=== PATIENT | female | born 1960 | race African-American/Black ===

== ENCOUNTER 2018-03-19 13:56 | Observation (INO) | payer OTHER ==
[2018-03-19] MEDS ORDERED: NITROGLYCERIN OINT 1 INCH/GM PACKET TOPICAL STA (14:30)
[2018-03-19] MEDS ORDERED: ASPIRIN 81 MG PO STA (14:30)
--- NOTE | 2018-03-19 14:33 | ED ---
General Adult HPI - General Chief complaint: Chest Pain Stated complaint: Chest Pain Time Seen by Provider: 03/19/18 14:00 Source: patient, RN notes reviewed Mode of arrival: EMS Limitations: no limitations - History of Present Illness Initial comments: This is a 58-year-old female who presents emergency Department with a past medical history significant for long-term methadone use and recent use of heroin and crack cocaine. Patient is currently in rehab and that is where she came from. Patient comes in complaining of chest pain difficulty breathing and shortness of breath. Patient states it started this morning after she was given her morning meds. Patient denies any diaphoretic episodes. Patient denies any recent fever chills. Patient does states she's had a cough but no sputum production. Patient denies abdominal pain patient denies nausea vomiting diarrhea. Patient denies any lightheadedness dizziness or near syncopal episode. Patient denies any headache patient denies numbness weakness - Related Data Home Medications Medication Instructions Recorded Confirmed Acetaminophen [Tylenol] 650 mg PO Q4H PRN 03/19/18 03/19/18 Buprenorphine HCl [Subutex] 2 mg SL ONCE 03/19/18 03/19/18 Buprenorphine HCl [Subutex] See Taper SL DIRECTED 03/19/18 03/19/18 Calc/Mag 1000/500mg 1 tab PO TID PRN 03/19/18 03/19/18 Chlorpheniramine Maleate 4 mg PO Q4H PRN 03/19/18 03/19/18 [Chlor-Trimeton] Docusate [Colace] 100 mg PO BID 03/19/18 03/19/18 Ibuprofen [Motrin] 600 mg PO Q6HR PRN 03/19/18 03/19/18 Multivitamins, Thera [Multivitamin 1 tab PO DAILY 03/19/18 03/19/18 (formulary)] Ondansetron Odt [Zofran Odt] 8 mg PO Q6H PRN 03/19/18 03/19/18 Ondansetron [Zofran] 4 mg IM Q6H PRN 03/19/18 03/19/18 Thiamine [Vitamin B-1] 100 mg PO DAILY 03/19/18 03/19/18 amLODIPine [Norvasc] 10 mg PO DAILY 03/19/18 03/19/18 busPIRone HCl [Buspar] 10 mg PO TID PRN MDD SEE COMMENTS 03/19/18 03/19/18 cloNIDine HCL [Catapres] 0.1 mg PO Q4H PRN 03/19/18 03/19/18 traZODone HCL 50 - 150 mg PO HS 03/19/18 03/19/18 Allergies Allergy/AdvReac Type Severity Reaction Status Date / Time cyclobenzaprine Allergy Unknown Verified 03/19/18 14:05 [From Flexeril] Sulfa (Sulfonamide Allergy Unknown Verified 03/19/18 14:05 Antibiotics) tetracycline Allergy Unknown Verified 03/19/18 14:05 Review of Systems ROS Statement: Those systems with pertinent positive or pertinent negative responses have been documented in the HPI. ROS Other: All systems not noted in ROS Statement are negative. Past Medical History Past Medical History: Hypertension, Osteoarthritis (OA) Additional Past Medical History / Comment(s): brain aneurism History of Any Multi-Drug Resistant Organisms: None Reported Past Surgical History: Cholecystectomy Additional Past Surgical History / Comment(s): brain coils Past Psychological History: No Psychological Hx Reported Smoking Status: Current every day smoker Past Drug Use History: Cocaine, Heroin, Methamphetamine General Exam - General Exam Comments Initial Comments: GENERAL: Patient is well-developed and well-nourished. Patient is nontoxic and well- hydrated and is in mild distress. ENT: Neck is soft and supple. No significant lymphadenopathy is noted. Oropharynx is clear. Moist mucous membranes. Neck has full range of motion without eliciting any pain. EYES: The sclera were anicteric and conjunctiva were pink and moist. Extraocular movements were intact and pupils were equal round and reactive to light. Eyelids were unremarkable. PULMONARY: Unlabored respirations. Good breath sounds bilaterally. No audible rales rhonchi or wheezing was noted. CARDIOVASCULAR: There is a regular rate and rhythm without any murmurs gallops or rubs. ABDOMEN: Soft and nontender with normal bowel sounds. No palpable organomegaly was noted. There is no palpable pulsatile mass. SKIN: Skin is clear with no lesions or rashes and otherwise unremarkable. NEUROLOGIC: Patient is alert and oriented x3. Cranial nerves II through XII are grossly intact. Motor and sensory are also intact. Normal speech, volume and content. Symmetrical smile. MUSCULOSKELETAL: Normal extremities with adequate strength and full range of motion. LYMPHATICS: No significant lymphadenopathy is noted PSYCHIATRIC: Normal psychiatric evaluation. Normal interpersonal interactions appears functionally intact in deals appropriately with others. No signs of depression. No signs of anxiety. Limitations: no limitations Course Vital Signs 03/19/18 03/19/18 14:12 16:24 Temperature 98.6 F Pulse Rate 57 L 52 L Respiratory 18 18 Rate Blood Pressure 152/76 141/63 O2 Sat by Pulse 93 L 98 Oximetry Medical Decision Making - Medical Decision Making EKG shows sinus bradycardia 50 bpm MI interval is 142 QRS is 88 QT interval is 436 QTC is [address] segment elevation there is no ST segment depression. Chest x-ray shows no acute abnormality. I spoke with the [facility] hospitalist and admitted the patient. - Lab Data Result diagrams: 03/19/18 16:09 03/19/18 16:10 Lab Results 03/19/18 03/19/18 03/19/18 Range/Units 16:09 16:10 16:10 WBC 7.8 (3.8-10.6) k/uL RBC 4.55 (3.80-5.40) m/uL Hgb 14.0 (11.4-16.0) gm/dL Hct 42.9 (34.0-46.0) % MCV 94.1 (80.0-100.0) fL MCH 30.8 (25.0-35.0) pg MCHC 32.7 (31.0-37.0) g/dL RDW 13.3 (11.5-15.5) % Plt Count 176 (150-450) k/uL Neutrophils % 80 % Lymphocytes % 16 % Monocytes % 3 % Eosinophils % 1 % Basophils % 0 % Neutrophils # 6.2 (1.3-7.7) k/uL Lymphocytes # 1.2 (1.0-4.8) k/uL Monocytes # 0.2 (0-1.0) k/uL Eosinophils # 0.0 (0-0.7) k/uL Basophils # 0.0 (0-0.2) k/uL PT 10.2 (9.0-12.0) sec INR 1.0 (<1.2) APTT 26.9 (22.0-30.0) sec Sodium 139 (137-145) mmol/L Potassium 4.2 (3.5-5.1) mmol/L Chloride 108 H (98-107) mmol/L Carbon Dioxide 23 (22-30) mmol/L Anion Gap 8 mmol/L BUN 17 (7-17) mg/dL Creatinine 1.37 H (0.52-1.04) mg/dL Est GFR (CKD-EPI)AfAm 50 (>60 ml/min/1.73 sqM) Est GFR (CKD-EPI)NonAf 43 (>60 ml/min/1.73 sqM) Glucose 113 H (74-99) mg/dL Calcium 9.7 (8.4-10.2) mg/dL Magnesium 1.8 (1.6-2.3) mg/dL Total Bilirubin 0.5 (0.2-1.3) mg/dL AST 36 (14-36) U/L ALT 35 (9-52) U/L Alkaline Phosphatase 86 (38-126) U/L Total Creatine Kinase (30-135) U/L CK-MB (CK-2) (0.0-2.4) ng/mL CK-MB (CK-2) Rel Index Troponin I (0.000-0.034) ng/mL Total Protein 7.5 (6.3-8.2) g/dL Albumin 4.1 (3.5-5.0) g/dL 03/19/18 Range/Units 16:10 WBC (3.8-10.6) k/uL RBC (3.80-5.40) m/uL Hgb (11.4-16.0) gm/dL Hct (34.0-46.0) % MCV (80.0-100.0) fL MCH (25.0-35.0) pg MCHC (31.0-37.0) g/dL RDW (11.5-15.5) % Plt Count (150-450) k/uL Neutrophils % % Lymphocytes % % Monocytes % % Eosinophils % % Basophils % % Neutrophils # (1.3-7.7) k/uL Lymphocytes # (1.0-4.8) k/uL Monocytes # (0-1.0) k/uL Eosinophils # (0-0.7) k/uL Basophils # (0-0.2) k/uL PT (9.0-12.0) sec INR (<1.2) APTT (22.0-30.0) sec Sodium (137-145) mmol/L Potassium (3.5-5.1) mmol/L Chloride (98-107) mmol/L Carbon Dioxide (22-30) mmol/L Anion Gap mmol/L BUN (7-17) mg/dL Creatinine (0.52-1.04) mg/dL Est GFR (CKD-EPI)AfAm (>60 ml/min/1.73 sqM) Est GFR (CKD-EPI)NonAf (>60 ml/min/1.73 sqM) Glucose (74-99) mg/dL Calcium (8.4-10.2) mg/dL Magnesium (1.6-2.3) mg/dL Total Bilirubin (0.2-1.3) mg/dL AST (14-36) U/L ALT (9-52) U/L Alkaline Phosphatase (38-126) U/L Total Creatine Kinase 154 H (30-135) U/L CK-MB (CK-2) 0.6 (0.0-2.4) ng/mL CK-MB (CK-2) Rel Index 0.4 Troponin I <0.012 (0.000-0.034) ng/mL Total Protein (6.3-8.2) g/dL Albumin (3.5-5.0) g/dL Disposition Clinical Impression: Chest pain Disposition: ADMITTED IP TO THIS HOSP Is patient prescribed a controlled substance at d/c from ED?: No Referrals: Nonstaff,Physician [Primary Care Provider] - 1-2 days Time of Disposition: 17:44
--- NOTE | 2018-03-19 15:10 | XR ---
EXAMINATION TYPE: XR chest 2V DATE OF EXAM: 03/19/2018 COMPARISON: NONE HISTORY: History of bradycardia with chest pain and difficulty breathing since this morning. TECHNIQUE: Frontal and lateral views of the chest are obtained. FINDINGS: There is no focal air space opacity, pleural effusion, or pneumothorax seen. The cardiac silhouette size is within normal limits. The osseous structures are intact. IMPRESSION: No acute cardiopulmonary process.
[2018-03-19 16:48] LABS: Basophils % (A) 0 %; Eosinophils % (A) 1 %; HCT 42.9 % (34.0-46.0); Lymphocytes # (A) 1.2 k/uL (1.0-4.8); Lymphocytes % (A) 16 %; MCH 30.8 pg (25.0-35.0); MCHC 32.7 g/dL (31.0-37.0); MCV 94.1 fL (80.0-100.0); Mean Platelet Volume 8.7; Monocytes # (A) 0.2 k/uL (0-1.0); Monocytes % (A) 3 %; Neutrophils # (A) 6.2 k/uL (1.3-7.7); Neutrophils % (A) 80 %; Platelet Count 176 k/uL (150-450); RBC 4.55 m/uL (3.80-5.40); RDW 13.3 % (11.5-15.5); WBC 7.8 k/uL (3.8-10.6)
[2018-03-19 16:58] LABS: Partial Thromboplastin Time 26.9 sec (22.0-30.0); Prothrombin Time 10.2 sec (9.0-12.0)
[2018-03-19 17:17] LABS: Albumin 4.1 g/dL (3.5-5.0); Calcium 9.7 mg/dL (8.4-10.2); Magnesium 1.8 mg/dL (1.6-2.3); Potassium 4.2 mmol/L (3.5-5.1); Total Bilirubin 0.5 mg/dL (0.2-1.3); Total Protein 7.5 g/dL (6.3-8.2)
[2018-03-19 17:18] LABS: Creatine Kinase 154 U/L (30-135)
[2018-03-19 17:31] LABS: Creatine Kinase MB 0.6 ng/mL (0.0-2.4); Troponin I <0.012 ng/mL (0.000-0.034)
[2018-03-19] MEDS ORDERED: NITROGLYCERIN SL TABS 0.4 MG TAB SUBLINGUAL PRN (17:44)
[2018-03-19] MEDS ORDERED: LORazepam 2 MG/ML INJ IV STA (17:59)
[2018-03-19] MEDS: NITROGLYCERIN OINT 1 INCH/GM PACKET TOPICAL SCH (19:02)
[2018-03-19 20:35] VITALS: BMI 41.1
[2018-03-19] MEDS ORDERED: BISACODYL 10 MG SUPP RECTAL PRN (21:57)
[2018-03-19] MEDS ORDERED: cloNIDine HCL 0.1 MG TAB PO PRN (21:59)
[2018-03-19] MEDS ORDERED: ONDANSETRON ODT 8 MG TAB.RAPDIS PO PRN (21:59)
[2018-03-19] MEDS ORDERED: busPIRone HCl 10 MG TAB PO PRN (21:59)
[2018-03-19] MEDS ORDERED: CALC PO PRN (21:59)
[2018-03-19] MEDS ORDERED: MAG PO PRN (21:59)
[2018-03-19] MEDS ORDERED: diphenhydrAMINE 25 MG CAP PO PRN (21:59)
[2018-03-19] MEDS ORDERED: BUPRENORPHINE SL SCH (22:00)
[2018-03-19 22:47] LABS: Creatine Kinase 136 U/L (30-135)
[2018-03-19 22:59] LABS: Creatine Kinase MB 0.7 ng/mL (0.0-2.4); Troponin I <0.012 ng/mL (0.000-0.034)
[2018-03-19] MEDS: SENNOSIDES-DOCUSATE SODIUM 1 EACH TAB PO SCH (23:12)
[2018-03-19] MEDS: amLODIPine 10 MG TAB PO SCH (23:12)
[2018-03-19] MEDS: traZODone HCL 50 MG TAB PO SCH (23:12)
[2018-03-19] MEDS: LORazepam 2 MG/ML INJ IV PRN (23:13)
[2018-03-19] MEDS: PANTOPRAZOLE 40 MG TABLET PO SCH (23:13)
[2018-03-19] MEDS: HEPARIN SODIUM,PORCINE 5,000 UNIT/ML 1 ML VIAL SQ SCH (23:58)
[2018-03-20] MEDS: NITROGLYCERIN OINT 1 INCH/GM PACKET TOPICAL SCH ×2 (00:09→05:23)
[2018-03-20 06:49] LABS: Creatine Kinase MB 0.6 ng/mL (0.0-2.4); Troponin I 0.014 ng/mL (0.000-0.034)
[2018-03-20 07:14] LABS: Cholesterol 167 mg/dL (<200); HDL Cholesterol 30 mg/dL (40-60); LDL Cholesterol,Calculated 100 mg/dL (0-99); Triglycerides 184 mg/dL (<150)
--- NOTE | 2018-03-20 09:56 | CONS ---
CONSULTATION Mrs. Bello is a 58-year-old female with known history of hypertension, chronic tobacco use, who presented to the emergency room from [place] where she was receiving detoxification for heroin, crack and methadone abuse. She felt that the dose of the methadone was weaned down very rapidly and yesterday she felt quite edgy, was nauseated and had achiness all over and she has some chest discomfort. She has no prior documented history of coronary artery disease. She has a history of bradycardia that was asymptomatic. She has mild dyspnea on exertion, but no exertional chest pain. No dizziness. No palpitation. No syncope. No PND, orthopnea, or peripheral edema. Her coronary risk factors are positive for the chronic tobacco use, hypertension. She is nondiabetic. MEDICATION: Include trazodone, buspirone, Norvasc 10 mg daily, thiamin, Zofran, Motrin, and Colace, . REVIEW OF SYSTEMS: RESPIRATORY system: She had history of chronic tobacco use, but no recent wheezing. GI system: No recent GI bleed. No peptic ulcer disease. She had nausea recently. system: No dysuria or hematuria. Nervous system: No stroke or seizure. PHYSICAL EXAMINATION: Physical examination revealed a 58-year-old female, alert, oriented, in no apparent distress. Blood pressure 131/60 with a heart rate in the 60s. HEAD: Normocephalic. Eyes: Sclerae anicteric. Neck is good upstroke. No bruit. No jugular venous distention. Lungs clear to auscultation. HEART: Regular rate and rhythm S1, S2. No S3. No rub. ABDOMEN: Soft, nontender. Positive bowel sounds. No organomegaly. EXTREMITIES: No edema. Intact distal pulses. LAB DATA: Lab data revealed a troponin less than 0.012 for 2 samples. Cholesterol 167, LDL 100, BUN and creatinine 17 and 1.37, potassium 4.0. EKG revealed a sinus bradycardia, rate of 50, no acute changes. Chest x-ray shows no acute infiltrate. IMPRESSION: 1. Chest discomfort atypical for ischemic heart disease. No evidence of acute coronary syndrome. 2. History of multisubstance abuse, undergoing detox. 3. Hypertension. 4. Sinus bradycardia, chronic. 5. Chronic tobacco use. RECOMMENDATION: From the cardiac standpoint, I will obtain echocardiogram with Doppler. If there is no evidence of significant abnormality, I would expect she should be able to be discharged home and followed with her primary physician. Thank you for this consult. CAROLYN / MYRNAN: [id number] /
[2018-03-20] MEDS: HEPARIN SODIUM,PORCINE 5,000 UNIT/ML 1 ML VIAL SQ SCH ×2 (11:09→20:02)
[2018-03-20] MEDS: PANTOPRAZOLE 40 MG TABLET PO SCH (11:09)
[2018-03-20] MEDS: amLODIPine 10 MG TAB PO SCH (11:09)
[2018-03-20] MEDS: ASPIRIN 325 MG TAB PO SCH (11:09)
[2018-03-20] MEDS: THIAMINE 100 MG TAB PO SCH (11:09)
[2018-03-20] MEDS: MULTIVITAMINS, THERA 1 EACH TAB PO SCH (11:09)
[2018-03-20] MEDS: SENNOSIDES-DOCUSATE SODIUM 1 EACH TAB PO SCH ×2 (11:10→19:57)
[2018-03-20] MEDS: ACETAMINOPHEN TAB 325 MG TAB PO PRN (11:13)
[2018-03-20] MEDS ORDERED: SODIUM CHLORIDE 0.9% 500 ML IV ONE ×2 (13:57→17:58)
--- NOTE | 2018-03-20 14:00 | P.HPIM ---
History of Present Illness This is a pleasant 58 years old female with past medical history of hypertension , osteoarthritis, renal disease, brain aneurysm who presents from [facility] for recent use of her weaning and crack cocaine and methadone abuse. Patient presents with chest pain and associated with dyspnea. Patient was admitted for detoxification of her substance abuse. Patient states she was taken methadone 75 mg and to start tapering her down regularly as per patient rapidly with 10 mg each time and each day down to stop and it. As per patient after 2 days she was started feeling abnormals with central chest pain nonradiating, moderate to severe. Associated with shortness of breath and dyspnea. Nonspecific in character. Associated also with pain all over her body and joints. So at [facility] they gave her 2 mg and 4 mg of subutox . However patient started to have pain all over her body and it sounded to send her to emergency room. In the ED her creatinine was high at 1.37, unknown baseline. sugar at 154 and 136. High triglycerides at 184 and LDL 103 LFTs was unremarkable. INR is 1.0. CBC was unremarkable. EKG shows sinus bradycardia at 50 with QTC [address]-T changes. Chest x-ray shows no acute cardiopulmonary process Patient has been evaluated by technical planner and recommended to check echocardiogram and it was concerning the recommendation recommendation discharge patient to follow up as an outpatient from his perspective Review of Systems CONSTITUTIONAL: No fever, no malaise, no fatigue. HEENT: No recent visual problems or hearing problems. Denied any sore throat. CARDIOVASCULAR: No orthopnea, PND, no palpitations, no syncope. PULMONARY: No shortness of breath, no cough, no hemoptysis. GASTROINTESTINAL: No diarrhea, no nausea, no vomiting, no abdominal pain. Normoactive bowel sounds. NEUROLOGICAL: No headaches, no weakness, no numbness. HEMATOLOGICAL: Denies any bleeding or petechiae. GENITOURINARY: Denies any burning micturition, frequency, or urgency. MUSCULOSKELETAL/RHEUMATOLOGICAL: Denies any joint pain, swelling, or any muscle pain. ENDOCRINE: Denies any polyuria or polydipsia. Past Medical History Past Medical History: Hypertension, Osteoarthritis (OA), Renal Disease Additional Past Medical History / Comment(s): brain aneurysm History of Any Multi-Drug Resistant Organisms: None Reported Past Surgical History: Cholecystectomy Additional Past Surgical History / Comment(s): brain coils Past Anesthesia/Blood Transfusion Reactions: No Reported Reaction Past Psychological History: No Psychological Hx Reported Smoking Status: Current every day smoker Past Drug Use History: Cocaine, Heroin, Methamphetamine - Past Family History Father Family Medical History: Cancer, Diabetes Mellitus, Hypertension Mother Additional Family Medical History / Comment(s): AIDS Medications and Allergies Home Medications Medication Instructions Recorded Confirmed Type Acetaminophen [Tylenol] 650 mg PO Q4H PRN 03/19/18 03/19/18 History Buprenorphine HCl [Subutex] 2 mg SL ONCE 03/19/18 03/19/18 History Buprenorphine HCl [Subutex] See Taper SL DIRECTED 03/19/18 03/19/18 History Calc/Mag 1000/500mg 1 tab PO TID PRN 03/19/18 03/19/18 History Chlorpheniramine Maleate 4 mg PO Q4H PRN 03/19/18 03/19/18 History [Chlor-Trimeton] Docusate [Colace] 100 mg PO BID 03/19/18 03/19/18 History Ibuprofen [Motrin] 600 mg PO Q6HR PRN 03/19/18 03/19/18 History Multivitamins, Thera [Multivitamin 1 tab PO DAILY 03/19/18 03/19/18 History (formulary)] Ondansetron Odt [Zofran Odt] 8 mg PO Q6H PRN 03/19/18 03/19/18 History Ondansetron [Zofran] 4 mg IM Q6H PRN 03/19/18 03/19/18 History Thiamine [Vitamin B-1] 100 mg PO DAILY 03/19/18 03/19/18 History amLODIPine [Norvasc] 10 mg PO DAILY 03/19/18 03/19/18 History busPIRone HCl [Buspar] 10 mg PO TID PRN MDD SEE COMMENTS 03/19/18 03/19/18 History cloNIDine HCL [Catapres] 0.1 mg PO Q4H PRN 03/19/18 03/19/18 History traZODone HCL 50 - 150 mg PO HS 03/19/18 03/19/18 History Allergies Allergy/AdvReac Type Severity Reaction Status Date / Time cyclobenzaprine Allergy Unknown Verified 03/19/18 14:05 [From Flexeril] Sulfa (Sulfonamide Allergy Unknown Verified 03/19/18 14:05 Antibiotics) tetracycline Allergy Unknown Verified 03/19/18 14:05 Physical Exam Vitals: Vital Signs Temp Pulse Pulse Pulse Resp BP BP 03/20/18 12:00 98.4 F 56 L 18 03/20/18 08:00 98.6 F 55 L 62 18 03/20/18 05:36 03/20/18 04:00 98.7 F 62 16 03/20/18 00:00 51 L 16 03/19/18 23:13 98.5 F 52 L 16 03/19/18 20:00 51 L 16 03/19/18 19:20 98.1 F 55 L 18 184/97 03/19/18 19:02 98.1 F 98 18 121/86 03/19/18 16:24 52 L 18 141/63 03/19/18 14:12 98.6 F 57 L 18 152/76 BP Pulse Ox 03/20/18 12:00 179/72 94 L 03/20/18 08:00 131/74 95 03/20/18 05:36 131/60 03/20/18 04:00 148/88 97 03/20/18 00:00 03/19/18 23:13 162/77 96 03/19/18 20:00 03/19/18 19:20 190/95 96 03/19/18 19:02 98 03/19/18 16:24 98 03/19/18 14:12 93 L Intake and Output 03/19/18 03/20/18 03/20/18 22:59 06:59 14:59 Other: Voiding Method Toilet Toilet Toilet # Voids 2 Weight 108.862 kg GENERAL: The patient is alert and oriented x3, not in any acute distress. Well developed, well nourished. Obese HEENT: Pupils are round and equally reacting to light. EOMI. No scleral icterus. No conjunctival pallor. Normocephalic, atraumatic. No pharyngeal erythema. No thyromegaly. CARDIOVASCULAR: S1 and S2 present. No murmurs, rubs, or gallops. PULMONARY: Chest is clear to auscultation, no wheezing or crackles. ABDOMEN: Soft, nontender, nondistended, normoactive bowel sounds. No palpable organomegaly. MUSCULOSKELETAL: No joint swelling or deformity. EXTREMITIES: No cyanosis, clubbing, or pedal edema. NEUROLOGICAL: Gross neurological examination did not reveal any focal deficits. SKIN: No rashes. Results CBC & Chem 7: 03/19/18 16:09 03/19/18 16:10 Labs: Abnormal Lab Results - Last 24 Hours (Table) 03/19/18 03/19/18 03/19/18 Range/Units 16:10 16:10 22:15 Chloride 108 H (98-107) mmol/L Creatinine 1.37 H (0.52-1.04) mg/dL Glucose 113 H (74-99) mg/dL Total Creatine Kinase 154 H 136 H (30-135) U/L Triglycerides (<150) mg/dL LDL Cholesterol, Calc (0-99) mg/dL HDL Cholesterol (40-60) mg/dL 03/20/18 Range/Units 05:23 Chloride (98-107) mmol/L Creatinine (0.52-1.04) mg/dL Glucose (74-99) mg/dL Total Creatine Kinase (30-135) U/L Triglycerides 184 H (<150) mg/dL LDL Cholesterol, Calc 100 H (0-99) mg/dL HDL Cholesterol 30 L (40-60) mg/dL Thrombosis Risk Factor Assmnt - Choose All That Apply Each Factor Represents 1 point: Age 41-60 years, Obesity (BMI >25) Thrombosis Risk Factor Assessment Total Risk Factor Score: 2 Thrombosis Risk Factor Assessment Level: Low Risk Assessment and Plan Assessment: Chest pain, with cardiology evaluation History of cocaine, her weaning and methadone abuse. Patient currently at rehab Hyperlipidemia Hypertension high Creatinine at 1.37, with an unknown baseline Asymptomatic bradycardia Dehydration Plan: Continue with the same treatment.Symptomatic treatment. Patient has been evaluated by technical planner recommended echocardiogram with possible discharge if it is negative with recommendation to follow up as an outpatient. We'll give IV fluids for dehydration and recheck labs Continue with GI and DVT prophylaxis. Pain management. Resume her home medication. Her current it to the patient to attend to [facility] upon discharge and she verbalized understanding and acceptance. Further recommendations based on the clinical course.
[2018-03-20 16:06] LABS: Calcium 9.5 mg/dL (8.4-10.2)
[2018-03-20 16:07] LABS: Potassium 5.2 mmol/L (3.5-5.1)
--- NOTE | 2018-03-20 16:22 | ECHOF ---
Referral Reason:chest pain MEASUREMENTS -------- HEIGHT: 162.6 cm WEIGHT: 108.9 kg BP: RVIDd: 3.3 cm (< 3.3) IVSd: 1.3 cm (0.6 - 1.1) LVIDd: 4.3 cm (3.9 - 5.3) LVPWd: 1.2 cm (0.6 - 1.1) IVSs: 1.4 cm LVIDs: 3.2 cm LVPWs: 1.5 cm LA Diam: 1.5 cm (2.7 - 3.8) LAESV Index (A-L): 40.15 ml/m Ao Diam: 3.1 cm (2.0 - 3.7) AV Cusp: 1.7 cm (1.5 - 2.6) LA Diam: 4.2 cm (2.7 - 3.8) MV EXCURSION: 22.907 mm (> 18.000) MV EF SLOPE: 127 mm/s (70 - 150) EPSS: 0.6 cm MV E Delroy: 0.68 m/s MV DecT: 202 ms MV A Delroy: 0.80 m/s MV E/A Ratio: 0.86 RAP: 5.00 mmHg RVSP: 32.22 mmHg FINDINGS -------- Sinus rhythm. This was a technically good study. The left ventricular size is normal. There is mild concentric left ventricular hypertrophy. Overa ll left ventricular systolic function is normal with, an EF between 55 - 60 %. The right ventricle is normal in size. LA is severely dilated >40 ml/m2 The right atrial size is normal. The aortic valve is trileaflet, and appears structurally normal. No aortic stenosis or regurgitation. Mild mitral annular calcification present. Mild mitral regurgitation is present. Mild tricuspid regurgitation present. There is no evidence of pulmonary hypertension. The right v entricular systolic pressure, as measured by Doppler, is 32.22mmHg. There is no pulmonic regurgitation present. The aortic root size is normal. There is no pericardial effusion. CONCLUSIONS -------- 1. Sinus rhythm. 2. The left ventricular size is normal. 3. There is mild concentric left ventricular hypertrophy. 4. Overall left ventricular systolic function is normal with, an EF between 55 - 60 %. 5. LA is severely dilated >40 ml/m2 6. The aortic valve is trileaflet, and appears structurally normal. No aortic stenosis or regurgitati on. 7. Mild mitral annular calcification present. 8. Mild mitral regurgitation is present. 9. Mild tricuspid regurgitation present. 10. There is no evidence of pulmonary hypertension. 11. There is no pulmonic regurgitation present. 12. The aortic root size is normal. 13. There is no pericardial effusion. SEARCH DIRECTOR: Marci Hussein RDCS
[2018-03-20] MEDS: SODIUM CHLORIDE 0.9% 1,000 ML IV SCH (18:21)
[2018-03-20] MEDS: LORazepam 2 MG/ML INJ IV PRN ×2 (18:22→22:15)
[2018-03-20] MEDS: traZODone HCL 50 MG TAB PO SCH (19:57)
[2018-03-20 22:19] LABS: Calcium 9.3 mg/dL (8.4-10.2)
[2018-03-20 22:23] LABS: Potassium 4.9 mmol/L (3.5-5.1)
[2018-03-21] MEDS: ACETAMINOPHEN TAB 325 MG TAB PO PRN (03:03)
[2018-03-21 08:05] LABS: Calcium 9.3 mg/dL (8.4-10.2)
[2018-03-21] MEDS: HEPARIN SODIUM,PORCINE 5,000 UNIT/ML 1 ML VIAL SQ SCH ×2 (08:10→21:09)
[2018-03-21] MEDS: PANTOPRAZOLE 40 MG TABLET PO SCH (08:12)
[2018-03-21] MEDS: MULTIVITAMINS, THERA 1 EACH TAB PO SCH (08:12)
[2018-03-21] MEDS: SENNOSIDES-DOCUSATE SODIUM 1 EACH TAB PO SCH ×2 (08:12→21:09)
[2018-03-21] MEDS: ASPIRIN 325 MG TAB PO SCH (08:12)
[2018-03-21] MEDS: amLODIPine 10 MG TAB PO SCH (08:12)
[2018-03-21] MEDS: THIAMINE 100 MG TAB PO SCH (08:12)
[2018-03-21 08:14] LABS: Potassium 4.5 mmol/L (3.5-5.1)
[2018-03-21] MEDS: hydrALAZINE HCL 25 MG TAB PO SCH ×2 (12:12→21:10)
--- NOTE | 2018-03-21 16:07 | P.PN ---
Subjective This is a pleasant 58 years old female with past medical history of hypertension , osteoarthritis, renal disease, brain aneurysm who presents from [facility] for recent use of her weaning and crack cocaine and methadone abuse. Patient presents with chest pain and associated with dyspnea. Patient was admitted for detoxification of her substance abuse. Patient states she was taken methadone 75 mg and to start tapering her down regularly as per patient rapidly with 10 mg each time and each day down to stop and it. As per patient after 2 days she was started feeling abnormals with central chest pain nonradiating, moderate to severe. Associated with shortness of breath and dyspnea. Nonspecific in character. Associated also with pain all over her body and joints. So at [facility] they gave her 2 mg and 4 mg of subutox . However patient started to have pain all over her body and it sounded to send her to emergency room. In the ED her creatinine was high at 1.37, unknown baseline. sugar at 154 and 136. High triglycerides at 184 and LDL 103 LFTs was unremarkable. INR is 1.0. CBC was unremarkable. EKG shows sinus bradycardia at 50 with QTC [address]-T changes. Chest x-ray shows no acute cardiopulmonary process Patient has been evaluated by pelletizer operator and recommended to check echocardiogram and it was concerning the recommendation recommendation discharge patient to follow up as an outpatient from his perspective -03/21/2018 Patient feels jittery and anxious, her creatinine is still elevated at 1.36. Potassium is within normal limits. Check renal ultrasound and ask for nephrology consult Objective - Vital Signs Vital signs: Vital Signs Temp 98.3 F 03/21/18 08:00 Pulse 59 L 03/21/18 12:00 Resp 18 03/21/18 12:00 BP 154/87 03/21/18 08:00 Pulse Ox 93 L 03/21/18 08:00 Intake & Output 03/20/18 03/21/18 03/21/18 18:59 06:59 18:59 Weight 108.862 kg Other: Voiding Method Toilet Toilet Toilet # Voids 3 3 - Exam GENERAL: The patient is alert and oriented x3, not in any acute distress. Well developed, well nourished. HEENT: Pupils are round and equally reacting to light. EOMI. No scleral icterus. No conjunctival pallor. Normocephalic, atraumatic. No pharyngeal erythema. No thyromegaly. CARDIOVASCULAR: S1 and S2 present. No murmurs, rubs, or gallops. PULMONARY: Chest is clear to auscultation, no wheezing or crackles. ABDOMEN: Soft, nontender, nondistended, normoactive bowel sounds. No palpable organomegaly. MUSCULOSKELETAL: No joint swelling or deformity. EXTREMITIES: No cyanosis, clubbing, or pedal edema. NEUROLOGICAL: Gross neurological examination did not reveal any focal deficits. SKIN: No rashes. - Labs CBC & Chem 7: 03/19/18 16:09 03/21/18 06:35 Labs: Abnormal Lab Results - Last 24 Hours (Table) 03/20/18 03/20/18 03/21/18 Range/Units 15:22 21:41 06:35 Potassium 5.2 H (3.5-5.1) mmol/L Chloride 117 H 117 H 119 H (98-107) mmol/L Carbon Dioxide 18 L 19 L 19 L (22-30) mmol/L BUN 19 H (7-17) mg/dL Creatinine 1.30 H 1.30 H 1.36 H (0.52-1.04) mg/dL Glucose 101 H 105 H (74-99) mg/dL Assessment and Plan Assessment: Chest pain, with cardiology evaluation History of cocaine, her weaning and methadone abuse. Patient currently at rehab Hyperlipidemia Hypertension high Creatinine at 1.37, with an unknown baseline Asymptomatic bradycardia Dehydration Plan: Continue with the same treatment.Symptomatic treatment. Patient has been evaluated by pelletizer operator recommended echocardiogram with possible discharge if it is negative with recommendation to follow up as an outpatient. We'll give IV fluids for dehydration and recheck labs Continue with GI and DVT prophylaxis. Pain management. Resume her home medication. Her current it to the patient to attend to [facility] upon discharge and she verbalized understanding and acceptance. Further recommendations based on the clinical course.
[2018-03-21] MEDS: LORazepam 2 MG/ML INJ IV PRN ×2 (16:10→21:09)
[2018-03-21] MEDS: GABAPENTIN 300 MG CAP PO SCH ×2 (17:06→21:09)
[2018-03-21] MEDS: traZODone HCL 50 MG TAB PO SCH (21:09)
[2018-03-22 04:51] VITALS: RESP 16
[2018-03-22 07:13] LABS: Calcium 9.4 mg/dL (8.4-10.2); Potassium 4.9 mmol/L (3.5-5.1)
--- NOTE | 2018-03-22 09:20 | PN ---
PROGRESS NOTE A 58-year-old lady with history of polysubstance abuse that is admitted to hospital with chest pain, was evaluated by my associate, Dr. Edward who felt that the chest discomfort was atypical and noncardiac in origin. Myocardial infarction is ruled out. She underwent an echocardiogram that showed normal LV function. No evidence of pericardial effusion. This morning, she is feeling better, but her blood pressures have been elevated at 180/78. There is no jugular venous distention. Chest exam reveals diminished air entry at the bases. Heart exam reveals first and second heart sounds. No gallop. Abdomen is soft. Examination of extremities did not reveal any edema. Peripheral pulses are palpable. ASSESSMENT: 1. Atypical chest pain. 2. Uncontrolled hypertension. PLAN: I will increase the dose of hydralazine to 50 mg 3 times a day for more optimal blood pressure control. She will continue rest of her medications. No further cardiac workup at this time. We will follow her on an as-needed basis. MMODL / IJN: [id number] /
[2018-03-22] MEDS: SODIUM CHLORIDE 0.9% 1,000 ML IV SCH ×2 (09:25→09:26)
[2018-03-22] MEDS: hydrALAZINE HCL 50 MG TAB PO SCH ×2 (10:19→16:49)
[2018-03-22] MEDS: SENNOSIDES-DOCUSATE SODIUM 1 EACH TAB PO SCH (10:19)
[2018-03-22] MEDS: GABAPENTIN 300 MG CAP PO SCH ×2 (10:20→16:49)
[2018-03-22] MEDS: THIAMINE 100 MG TAB PO SCH (10:20)
[2018-03-22] MEDS: HEPARIN SODIUM,PORCINE 5,000 UNIT/ML 1 ML VIAL SQ SCH (10:20)
[2018-03-22] MEDS: PANTOPRAZOLE 40 MG TABLET PO SCH (10:20)
[2018-03-22] MEDS: ASPIRIN 325 MG TAB PO SCH (10:20)
[2018-03-22] MEDS: amLODIPine 10 MG TAB PO SCH (10:20)
[2018-03-22] MEDS: ACETAMINOPHEN TAB 325 MG TAB PO PRN (10:34)
--- NOTE | 2018-03-22 11:01 | US ---
EXAMINATION TYPE: US renals and bladder DATE OF EXAM: 03/22/2018 COMPARISON: NONE CLINICAL HISTORY: acute kidney injury . PHAM EXAM MEASUREMENTS: Right Kidney: 10.9 x 5.1 x 4.4 cm Left Kidney: 9.2 x 4.8 x 4.0 cm Technical limitations due to patient's body habitus and large amount of overlying bowel content Right Kidney: prominent collecting system Left Kidney: limited evaluation due to overlying bowel, appears bulky Bladder: appears wnl Bilateral Jets seen: yes IMPRESSION: Limited exam as discussed above demonstrates a slightly prominent right collecting system without saji dence of renal calcification. Assessment for mass is limited given the limitations of the exam. Would recommend a follow-up CT scan as clinically warranted.
[2018-03-22 11:38] LABS: Appearance,Urine Clear (Clear); Bilirubin,Urine Negative (Negative); Blood,Urine Negative (Negative); Color,Urine Light Yellow; Glucose,Urine (UA) Negative (Negative); Ketones,Urine Negative (Negative); Leukocyte Esterase,Urine Negative (Negative); Nitrite,Urine Negative (Negative); Protein,Urine Negative (Negative); Specific Gravity,Urine 1.008 (1.001-1.035); Urobilinogen,Urine <2.0 mg/dL (<2.0)
--- NOTE | 2018-03-22 11:45 | P.NPCON ---
History of Present Illness - Reason for Consult acute renal failure - History of Present Illness Social for consultation: Acute kidney injury History of present illness: Patient is a 58-year-old female seen in renal consultation for acute kidney injury. Patient's creatinine was 1.3 this admission and is 1.47 today. Unclear as to what her baseline renal function is. Patient presented to the hospital with chest pain. This was evaluated by cardiology. Chest pain has resolved. No swelling. Admits to good urine output. No hematuria or dysuria. Patient does admit to using Motrin when needed for pain. She also has history of cocaine and heroine abuse. Patient states she last used these drugs about 2 weeks ago. She denies any family history of renal disease. Her blood pressures have been running high and hydralazine was added this morning. Amlodipine was added yesterday. Renal ultrasound reveals no significant hydronephrosis. Urinalysis is benign. Denies fever or chills. Denies shortness of breath. No abdominal pain. Oral intake is good. Vital signs are stable. General: The patient appeared well nourished and normally developed. HEENT: Head exam is unremarkable. Neck is without jugular venous distension. LUNGS: Lungs are clear to auscultation and percussion. Breath sounds decreased. HEART: Rate and Rhythm are regular. First and second heart sounds normal. No murmurs, rubs or gallops. ABDOMEN: Abdominal exam reveals normal bowel sounds. Non-tender and non- distended. No evidence of peritonitis. EXTREMITITES: No clubbing, cyanosis, or edema. Past Medical History Past Medical History: Hypertension, Osteoarthritis (OA), Renal Disease Additional Past Medical History / Comment(s): brain aneurysm History of Any Multi-Drug Resistant Organisms: None Reported Past Surgical History: Cholecystectomy Additional Past Surgical History / Comment(s): brain coils Past Anesthesia/Blood Transfusion Reactions: No Reported Reaction Past Psychological History: No Psychological Hx Reported Smoking Status: Current every day smoker Past Drug Use History: Cocaine, Heroin, Methamphetamine - Past Family History Father Family Medical History: Cancer, Diabetes Mellitus, Hypertension Mother Additional Family Medical History / Comment(s): AIDS Medications and Allergies Home Medications Medication Instructions Recorded Confirmed Type Acetaminophen [Tylenol] 650 mg PO Q4H PRN 03/19/18 03/19/18 History Buprenorphine HCl [Subutex] 2 mg SL ONCE 03/19/18 03/19/18 History Buprenorphine HCl [Subutex] See Taper SL DIRECTED 03/19/18 03/19/18 History Calc/Mag 1000/500mg 1 tab PO TID PRN 03/19/18 03/19/18 History Chlorpheniramine Maleate 4 mg PO Q4H PRN 03/19/18 03/19/18 History [Chlor-Trimeton] Docusate [Colace] 100 mg PO BID 03/19/18 03/19/18 History Ibuprofen [Motrin] 600 mg PO Q6HR PRN 03/19/18 03/19/18 History Multivitamins, Thera [Multivitamin 1 tab PO DAILY 03/19/18 03/19/18 History (formulary)] Ondansetron Odt [Zofran Odt] 8 mg PO Q6H PRN 03/19/18 03/19/18 History Ondansetron [Zofran] 4 mg IM Q6H PRN 03/19/18 03/19/18 History Thiamine [Vitamin B-1] 100 mg PO DAILY 03/19/18 03/19/18 History amLODIPine [Norvasc] 10 mg PO DAILY 03/19/18 03/19/18 History busPIRone HCl [Buspar] 10 mg PO TID PRN MDD SEE COMMENTS 03/19/18 03/19/18 History cloNIDine HCL [Catapres] 0.1 mg PO Q4H PRN 03/19/18 03/19/18 History traZODone HCL 50 - 150 mg PO HS 03/19/18 03/19/18 History Allergies Allergy/AdvReac Type Severity Reaction Status Date / Time cyclobenzaprine Allergy Unknown Verified 03/19/18 14:05 [From Flexeril] Sulfa (Sulfonamide Allergy Unknown Verified 03/19/18 14:05 Antibiotics) tetracycline Allergy Unknown Verified 03/19/18 14:05 Physical Exam Vitals: Vital Signs Temp Pulse Resp BP BP Pulse Ox 03/22/18 07:45 98.9 F 58 L 16 180/78 93 L 03/22/18 04:00 98.2 F 46 L 16 146/87 99 03/22/18 03:50 52 L 18 03/22/18 00:00 98.1 F 55 L 18 138/76 92 L 03/21/18 20:00 97.8 F 55 L 18 162/83 99 03/21/18 16:00 98.7 F 55 L 16 151/79 98 03/21/18 12:00 59 L 18 Intake and Output 03/21/18 03/22/18 03/22/18 22:59 06:59 14:59 Intake Total 100 Balance 100 Intake: Oral 100 Other: Voiding Method Toilet Toilet Toilet # Voids 1 2 Weight 108.862 kg Results - Lab Results Most recent lab results Calcium 9.4 mg/dL (8.4-10.2) 03/22/18 06:31 Magnesium 1.8 mg/dL (1.6-2.3) 03/19/18 16:10 03/19/18 16:09 03/22/18 06:31 Assessment and Plan Plan: Assessment: 1. Acute kidney injury versus chronic kidney disease. Unknown baseline creatinine. Creatinine this admission has been in the range of 1.3-1.5. Urinalysis is benign. No significant hydronephrosis noted on renal ultrasound. 2. Benign hypertension. Blood pressures have been running on the higher side. 3. History of polysubstance abuse including heroin and cocaine. 4. Tobacco abuse. 5. Chest pain. Atypical in nature. Evaluated by cardiology. 6. Metabolic acidosis secondary to acute kidney injury and IV fluids. Plan: Hep-Lock IV fluids. Continue with amlodipine and hydralazine. If blood pressure is controlled, she can be discharged home from nephrology standpoint. She will need to follow-up as an outpatient in the next 2 weeks. Avoid JOHNNY or [facility]B for now. Thank you for the consultation. I will continue to follow the patient with you during her hospital stay.
[2018-03-22] MEDS: MULTIVITAMINS, THERA 1 EACH TAB PO SCH (12:31)
--- NOTE | 2018-03-22 13:25 | P.DS ---
Providers Date of admission: 03/21/18 16:14 Attending physician: Gee Ford Consults: 03/19/18 17:44 Consult Physician Urgent Consulting Provider: [facility] Consult Reason/Comments: Chest pain Do you want consulting provider notified?: Yes 03/21/18 22:46 Consult Physician Routine Consulting Provider: Celine Nieves Consult Reason/Comments: Acute kid injury Do you want consulting provider notified?: Yes Primary care physician: Physician Nonstaff Hospital Course: This is a pleasant 58 years old female with past medical history of hypertension , osteoarthritis, renal disease, brain aneurysm who presents from [facility] for recent use of her weaning and crack cocaine and methadone abuse. Patient presents with chest pain and associated with dyspnea. Patient was admitted for detoxification of her substance abuse. Patient states she was taken methadone 75 mg and to start tapering her down regularly as per patient rapidly with 10 mg each time and each day down to stop and it. As per patient after 2 days she was started feeling abnormals with central chest pain nonradiating, moderate to severe. Associated with shortness of breath and dyspnea. Nonspecific in character. Associated also with pain all over her body and joints. So at [facility] they gave her 2 mg and 4 mg of subutox . However patient started to have pain all over her body and it sounded to send her to emergency room. In the ED her creatinine was high at 1.37, unknown baseline. sugar at 154 and 136. High triglycerides at 184 and LDL 103 LFTs was unremarkable. INR is 1.0. CBC was unremarkable. EKG shows sinus bradycardia at [address]-T changes. Chest x-ray shows no acute cardiopulmonary process Patient has been evaluated by waste reclaimer and recommended to check echocardiogram: EF 55-60% with mild LVH. LAD is severely dilated with no aortic stenosis recommendation discharge patient to follow up as an outpatient from his perspective Patient creatinine was ranging between 1.3-1.5 during hospital stay, unknown baseline. Patient receives intravenous hydration for more than 48 hours, which did not help lowering creatinine. Renal ultrasound: No mention of hydronephrosis. Right prominent collecting system without evidence of renal calcification (as per radiologist's report). Patient has been evaluated by city carrier assistant who recommended patient can be discharged home however she needs follow-up in 2 weeks. Patient agrees with this recommendation. However patient needed to control her blood pressure with SBP 135-184. Patient was started on Norvasc 10 mg daily plus hydralazine 50 mg 3 times a day. Patient was cleared for discharge by nephrology and cardiology services. Problems and management plan was discussed with the patient, including the recommendations to limit the amount of narcotics, opioids, and any other medication affected by kidney excretion. And risks, including but not limited to the risk of cardiopulmonary depression organ dysfunction and or , benefits and alternatives are explained to the patient and she verbalized understanding and acceptance. Patient telling me should she lives in [place] however she is willing to drive for about an hour or more to go to her nephrology appointments and she was to follow-up with Dr. Max in the office GENERAL: The patient is alert and oriented x3, not in any acute distress. Well developed, well nourished. HEENT: Pupils are round and equally reacting to light. EOMI. No scleral icterus. No conjunctival pallor. Normocephalic, atraumatic. No pharyngeal erythema. No thyromegaly. CARDIOVASCULAR: S1 and S2 present. No murmurs, rubs, or gallops. PULMONARY: Chest is clear to auscultation, no wheezing or crackles. ABDOMEN: Soft, nontender, nondistended, normoactive bowel sounds. No palpable organomegaly. MUSCULOSKELETAL: No joint swelling or deformity. EXTREMITIES: No cyanosis, clubbing, or pedal edema. NEUROLOGICAL: Gross neurological examination did not reveal any focal deficits. SKIN: No rashes. Time spent more than 35 minutes Plan - Discharge Summary New Discharge Prescriptions: No Action traZODone HCL 50 - 150 mg PO HS Ondansetron [Zofran] 4 mg IM Q6H PRN PRN Reason: Nausea And Vomiting Ibuprofen [Motrin] 600 mg PO Q6HR PRN PRN Reason: Fever And/ Or Pain Chlorpheniramine Maleate [Chlor-Trimeton] 4 mg PO Q4H PRN PRN Reason: Allergy Symptoms Ondansetron Odt [Zofran Odt] 8 mg PO Q6H PRN PRN Reason: Nausea And Vomiting Acetaminophen [Tylenol] 650 mg PO Q4H PRN PRN Reason: Fever And/ Or Pain busPIRone HCl [Buspar] 10 mg PO TID PRN MDD SEE COMMENTS PRN Reason: Anxiety cloNIDine HCL [Catapres] 0.1 mg PO Q4H PRN PRN Reason: HIGH BP Buprenorphine HCl [Subutex] 2 mg SL ONCE Buprenorphine HCl [Subutex] See Taper SL DIRECTED amLODIPine [Norvasc] 10 mg PO DAILY Thiamine [Vitamin B-1] 100 mg PO DAILY Docusate [Colace] 100 mg PO BID Multivitamins, Thera [Multivitamin (formulary)] 1 tab PO DAILY Calc/Mag 1000/500mg 1 tab PO TID PRN PRN Reason: MUSCLE CRAMPS Discharge Medication List Acetaminophen [Tylenol] 650 mg PO Q4H PRN 03/19/18 [History] Buprenorphine HCl [Subutex] 2 mg SL ONCE 03/19/18 [History] Buprenorphine HCl [Subutex] See Taper SL DIRECTED 03/19/18 [History] Calc/Mag 1000/500mg 1 tab PO TID PRN 03/19/18 [History] Chlorpheniramine Maleate [Chlor-Trimeton] 4 mg PO Q4H PRN 03/19/18 [History] Docusate [Colace] 100 mg PO BID 03/19/18 [History] Ibuprofen [Motrin] 600 mg PO Q6HR PRN 03/19/18 [History] Multivitamins, Thera [Multivitamin (formulary)] 1 tab PO DAILY 03/19/18 [History ] Ondansetron Odt [Zofran Odt] 8 mg PO Q6H PRN 03/19/18 [History] Ondansetron [Zofran] 4 mg IM Q6H PRN 03/19/18 [History] Thiamine [Vitamin B-1] 100 mg PO DAILY 03/19/18 [History] amLODIPine [Norvasc] 10 mg PO DAILY 03/19/18 [History] busPIRone HCl [Buspar] 10 mg PO TID PRN MDD SEE COMMENTS 03/19/18 [History] cloNIDine HCL [Catapres] 0.1 mg PO Q4H PRN 03/19/18 [History] traZODone HCL 50 - 150 mg PO HS 03/19/18 [History] Follow up Appointment(s)/Referral(s): Nonstaff,Physician [Primary Care Provider] - 1-2 days
[2018-03-22 15:29] VITALS: BP 156/79; PULSE 69; TEMP 98.2
== END 2018-03-22 17:33 | disposition home or self-care (01) ==
LOC: EC 13:56 → 3OBS 17:53 → INTOOBSV 03-21 16:14 → OBSVTOIN 03-21 16:14 → UNDODISIN 03-22 17:33
PROVIDERS: ADMIT Hospitalist; ATTEND Hospitalist
DX: R07.89 Other chest pain (principal); E87.2 Acidosis; N17.9 Acute kidney failure, unspecified; R06.02 Shortness of breath; R06.00 Dyspnea, unspecified; R05 Cough; E78.5 Hyperlipidemia, unspecified; R06.09 Other forms of dyspnea; R11.0 Nausea; E86.0 Dehydration; F14.10 Cocaine abuse, uncomplicated; F11.10 Opioid abuse, uncomplicated; F17.200 Nicotine dependence, unspecified, uncomplicated; I10 Essential (primary) hypertension; I67.1 Cerebral aneurysm, nonruptured; M19.90 Unspecified osteoarthritis, unspecified site; R00.1 Bradycardia, unspecified; Z79.899 Other long term (current) drug therapy; Z88.1 Allergy status to other antibiotic agents; Z88.2 Allergy status to sulfonamides; Z88.8 Allergy status to other drugs, medicaments and biological substances; Z90.49 Acquired absence of other specified parts of digestive tract; Z82.49 Family history of ischemic heart disease and other diseases of the circulatory system; Z83.0 Family history of human immunodeficiency virus [HIV] disease; Z83.3 Family history of diabetes mellitus; Z80.9 Family history of malignant neoplasm, unspecified; E66.9 Obesity, unspecified; Z68.41 Body mass index [BMI] 40.0-44.9, adult
CPT/HCPCS: 96372 ×4; 96376 ×3; 96374; 99285; 36415; 93005; 93306; 80061; 80053; 80048 ×3; 82550 ×2; 82553 ×2; 83735; 84484 ×2; 85025; 85610; 85730; 81003; 71046; 76770; G0378 ×5; J2060 ×3; J1644 ×4